=== PATIENT | female | born 1985 | race Caucasian/White ===

== ENCOUNTER 2017-03-20 14:18 | Emergency (ER) | payer OTHER ==
[~2017-03-20] VITALS: Ht 152.4 cm; Wt 90.0 kg
[2017-03-20 14:28] VITALS: Ht 152.4 cm; Wt 90.0 kg
[2017-03-20] MEDS ORDERED: IBUP-1542 PO (15:37)
[2017-03-20] MEDS ORDERED: DOXY100T20 PO (15:37)
[2017-03-20] MEDS ORDERED: NPH10OT LEFT EAR (15:37)
--- NOTE | 2017-03-20 15:40 | ERD ---
ER Documentation Chief Complaint Date/Time DATE: 03/20/17 TIME: 15:39 Chief Complaint left ear pain HPI This 32-year-old female presents with left ear pain for last week. She is discharged well. She denies fevers, vomiting, shortness of breath, difficulty swallowing, additional symptoms. ROS All systems reviewed and are negative except as per history of present illness. Medications Home Meds Active Scripts Ibuprofen* (Motrin*) 600 Mg Tab, 600 MG PO Q6, #15 TAB Prov:MARIE LIU MD 03/20/17 Doxycycline Hyclate* (Doxycycline Hyclate*) 100 Mg Tablet.dr, 100 MG PO BID for 7 Days, TAB Prov:MARIE LIU MD 03/20/17 Neomycin/Polymyxin/Hydrocort* (Cortisporin* Otic) 10 Ml Susp, 4 DROP LEFT EAR QID for 7 Days, EA Prov:MARIE LIU MD 03/20/17 Allergies Allergies: Coded Allergies: Penicillins (Verified Allergy, Severe, 11/12/12) Codeine (Verified Allergy, 11/12/12) PMhx/Soc History of Surgery: Yes ( X4) Anesthesia Reaction: No Hx Neurological Disorder: No Hx Respiratory Disorders: Yes (ASTHMA) Hx Cardiac Disorders: Yes (HTN) Hx Psychiatric Problems: No Hx Miscellaneous Medical Probl: No Hx Alcohol Use: No Hx Substance Use: No Hx Tobacco Use: No Physical Exam Vitals Vital Signs Date Time Temp Pulse Resp B/P Pulse Ox O2 Delivery O2 Flow Rate FiO2 03/20/17 14:28 98.1 64 20 130/64 99 Physical Exam Const: [] Letter, [id number]. Head: Atraumatic Eyes: Normal Conjunctiva ENT: Normal External Ears, Nose and Mouth. There is some exudate and swelling and irritation left external auditory canal. She has pain with passive range of motion of the ear. There is no mastoid tenderness. TM appears grossly normal. Neck: Full range of motion..~ No meningismus. Resp: Clear to auscultation bilaterally Cardio: Regular rate and rhythm, no murmurs Abd: Soft, non tender, non distended. Normal bowel sounds Skin: No petechiae or rashes Back: No midline or flank tenderness Ext: No cyanosis, or edema Neur: Awake and alert Psych: Normal Mood and Affect Procedures/MDM Patient presents with signs and symptoms of left otitis externa without evidence of mastoiditis, malignant otitis externa, cellulitis, airway obstruction. She will treated with Cortisporin, doxycycline and ibuprofen. The patient was stable with no new complaints during the ER course. Clinically, there is no current evidence to suggest meningitis, sepsis, acute abdomen, pneumonia, acute coronary syndrome, pulmonary embolism, or any other emergent condition appearing to require further evaluation or hospitalization. The patient should certainly return for any new or worsening symptoms per the aftercare instructions. They should otherwise follow-up with her primary care doctor for reevaluation this week. Departure Diagnosis: Primary Impression: Otitis externa Otitis externa type: unspecified type Laterality: left Chronicity: acute Qualified Code: H60.502 - Acute otitis externa of left ear, unspecified type Additional Impression: Left ear pain Condition: Stable Patient Instructions: External Ear Infection (Adult) Additional Instructions: Recheck for new or worsening symptoms with primary care doctor. MARIE LIU MD Mar 20, 2017 15:40
== END 2017-03-20 16:09 | disposition home or self-care (01) ==
LOC: FTE 14:18
DX: H60.502 Unspecified acute noninfective otitis externa, left ear (principal); J45.909 Unspecified asthma, uncomplicated; I10 Essential (primary) hypertension
CPT/HCPCS: 99283

== ENCOUNTER 2017-10-30 16:03 | Emergency (ER) | END 2017-10-30 20:13 | disposition home or self-care (01) ==